=== PATIENT | female | born 1985 | race Caucasian/White ===

== ENCOUNTER 2019-09-09 17:01 | Emergency (ER) | payer OTHER, SELFPAY ==
--- NOTE | ~2019-09-09 | XR_ITS ---
EXAMINATION: XR abdomen/kub 1V INDICATION: Right flank pain TECHNIQUE: Supine views of the abdomen were obtained on 2 radiographs. COMPARISON: None FINDINGS: A right pelvic calcification has the appearance of a phlebolith. No definite urinary tract calculi are identified. The bowel gas pattern is normal. There is a moderate volume of colonic stool. An IUD is noted. IMPRESSION: 1. No radiographic correlate for the patient's symptoms. Reviewed, dictated and finalized at location A.
[2019-09-09 17:26] VITALS: BP 101/86; PULSE 98; RESP 20; TEMP 36.7; O2SAT 99
--- NOTE | 2019-09-09 17:42 | ED.FEMALEGU ---
HPI - Female Genitourinary General Chief complaint: Urogenital-Female Stated complaint: kidney infection Time Seen by Provider: 09/09/19 17:42 Source: patient and family History of Present Illness HPI Narrative: Patient presents with right flank pain. Patient denies any abdominal pain denies any pelvic pain denies any vaginal discharge denies any concern for STDs. Patient states her symptoms started today. Patient denies any gross hematuria she denies any history of kidney stones. Patient took Tylenol 500 mg approxi-3 hours ago for pain discomfort with minimal relief. Patient denies any nausea denies any fever. MD elicited complaint: dysuria and UTI Related Data Allergies Allergy/AdvReac Type Severity Reaction Status Date / Time bacitracin Allergy Unknown Hives Verified 09/09/19 17:46 neomycin Allergy Unknown Hives Verified 09/09/19 17:46 polymyxin B Allergy Unknown Hives Verified 09/09/19 17:46 Review of Systems Review of Systems: Narrative: CONSTITUTIONAL: Denies fever, chills, or sweats. EYES: Denies visual changes, redness, or discharge. ENT: Denies rhinorrhea, congestion, sore throat, or otalgia. CARDIOVASCULAR: Denies chest pain, palpitations, or edema. RESPIRATORY: Denies cough or dyspnea. GASTROINTESTINAL: Denies abdominal pain, nausea, vomiting, or diarrhea. Reports right flank pain GENITOURINARY: Denies dysuria or hematuria. SKIN: Denies rash or itching. MUSCULOSKELETAL: Denies back pain, joint pain, or myalgia. NEUROLOGIC: Denies headache, numbness, or weakness. PSYCHIATRIC: Denies anxiety or depression. PMFSH Comments At time of signature, agree with nursing past medical, surgical, social and family history. There is no relevant family history pertinent to the presenting complaint Exam Narrative: Exam Narrative: GENERAL: Well-appearing, well-nourished, and in no acute distress. HEAD: Normocephalic, atraumatic. EYES: PERRLA and EOMI. ENT: Nares clear, no rhinorrhea or epistaxis. Mucous membranes moist. NECK: Supple. CHEST: Clear to auscultation. No respiratory distress. HEART: Regular rate and rhythm. No murmur heard. Normal peripheral pulses. ABDOMEN: Soft, nontender, nondistended, normal active bowel sounds. Right flank pain EXTREMITIES: Normal range of motion. No edema. SKIN: Warm, dry, no rash. NEURO: No focal deficits. Alert and oriented x3. Fabi Coma Scale Eye Opening: Spontaneous 4 Fabi Coma Scale Motor: Obeys Commands 6 Logan Coma Scale Verbal: Oriented 5 Fabi Coma Scale Total 15 Course Vital Signs Vital signs: Vital Signs Temperature 36.7 C 09/09/19 17:26 Pulse Rate 98 09/09/19 17:26 Respiratory Rate 20 09/09/19 17:26 Blood Pressure 101/86 09/09/19 17:26 Pulse Oximetry 99 09/09/19 17:26 Temperature 36.7 C 09/09/19 17:26 Pulse Rate 98 09/09/19 17:26 Respiratory Rate 20 09/09/19 17:26 Blood Pressure 101/86 09/09/19 17:26 Pulse Oximetry 99 09/09/19 17:26 Much improvement after Toradol. Patient states pain is much improved. Discussed red flags, discussed urinalysis and KUB results. Patient does not wish to go to ER at this time. Patient would like to try outpatient treatment of UTI and follow-up with her primary care provider in 1 to 2 days. Patient states if any worsening or new symptoms occur she will go to the ER at that time. Instructed patient to strain all urine and call primary care office in a.m. for follow-up appointment as soon as possible. For possible further testing and evaluation. MDM - Female Genitourinary Differential Diagnosis Differential diagnosis: Likely urinary tract infection, ovarian cyst, cystitis, dysmenorrhea and other (Kidney stone, dysuria) Lab Data Labs: UCG Bedside Result Negative Reference Range: Negative Urine Glucose Negative Reference Range: Negative Urine Bilirubin Negative Reference Range: Negative Urine Ketone Negative
[2019-09-09] MEDS: KETOROLAC (*BKC) 60 MG/2 ML VIAL IM (17:49)
== END 2019-09-09 18:55 | disposition home or self-care (01) ==
PROVIDERS: Emergency Provider Nurse Practitioner Family
DX: N39.0 Urinary tract infection, site not specified (principal)
CPT/HCPCS: 74018; 81003; 81025; 87086; 96372; 99213; G0463; J1885

== ENCOUNTER 2020-12-27 15:11 | Emergency (ER) | payer OTHER, SELFPAY ==
--- NOTE | ~2020-12-27 | XR_ITS ---
EXAMINATION: XR ankle LT min 3V EXAM DATE: 12/27/2020 15:34 INDICATION: Left ankle twisting injury. TECHNIQUE: Left ankle frontal, lateral and oblique projections obtained and reviewed. There is no pr ior study for comparison. FINDINGS: The left ankle mortise appears intact. There are no acute fractures or dislocations ident ified. There is no subcutaneous gas. The soft tissue is unremarkable. There are no radiopaque for eign bodies. IMPRESSION: No acute osseous findings. Reviewed, dictated and finalized at location B. IMPRESSION: No acute osseous findings.
[2020-12-27 15:23] VITALS: BP 118/73; PULSE 70; RESP 16; TEMP 37.7; O2SAT 99
--- NOTE | 2020-12-27 15:58 | ED.LOWEXIN ---
HPI - Extremity Injury (Lower) General Chief Complaint: Extremity Injury, Lower Stated Complaint: Pain in Left Foot and Ankle Time Seen by Provider: 12/27/20 15:45 Source: patient, RN notes reviewed and old records reviewed Mode of arrival: ambulatory Limitations: no limitations History of Present Illness HPI Narrative: 35-year-old female who presents to [facility] with complaint of pain to her left foot and ankle lateral aspect.. She states that she was getting out of pool and she slipped on steps falling back into the pool hitting her left foot and lateral ankle on the steps.Patient states that her left ankle is sore on the lateral aspect of her ankle and also in area above the ankle bone. Patient is able to ambulate on left foot but with pain. Patient denies any other injuries. MD complaint: ankle injury and foot injury Injury: Left: ankle and foot Type of Injury: other (slipped and hit pool steps) Place: home Severity: moderate Severity scale (1-10): 5 Relieving factors: nothing Exacerbating factors: weight bearing and movement Other symptoms: none Treatments prior to arrival: NSAIDS Related Data Home Medications Medication Instructions Recorded Confirmed No Home Medications 12/27/20 12/27/20 Allergies Allergy/AdvReac Type Severity Reaction Status Date / Time bacitracin Allergy Unknown Hives Verified 12/27/20 15:39 neomycin Allergy Unknown Hives Verified 12/27/20 15:39 polymyxin B Allergy Unknown Hives Verified 12/27/20 15:39 Review of Systems Review of Systems: Narrative: CONSTITUTIONAL: Denies fever, chills, or sweats. EYES: Denies visual changes, redness, or discharge. ENT: Denies rhinorrhea, congestion, sore throat, or otalgia. CARDIOVASCULAR: Denies chest pain, palpitations, or edema. RESPIRATORY: Denies cough or dyspnea. GASTROINTESTINAL: Denies abdominal pain, nausea, vomiting, or diarrhea. GENITOURINARY: Denies dysuria or hematuria. SKIN: Denies rash or itching. MUSCULOSKELETAL: Denies back pain,positive for left lateral foot and ankle pain, or myalgia. NEUROLOGIC: Denies headache, numbness, or weakness. PSYCHIATRIC: Denies anxiety or depression. All systems reviewed & are unremarkable except as noted in HPI and below PMFSH Past Medical History Medical History IUD (intrauterine device) in place Surgical History Surgical History (Updated 12/30/20 @ 21:14 by Joyce Garnett NP) H/O oral surgery Family History Family History (Updated 12/30/20 @ 21:17 by Joyce Garnett NP) Sibling Asthma Father Rheumatoid arthritis Acute myocardial infarction Grandparent Diabetes mellitus Stomach cancer Other Hypertension Social History Social History (Updated 12/30/20 @ 21:17 by Joyce Garnett NP) Smoking status: Never smoker Alcohol intake: never Substance use: never Living arrangements: with family Gender identity (if verbalized by the patient): Female Comments At time of signature, agree with nursing past medical, surgical, social and family history. There is no relevant family history pertinent to the presenting complaint Exam Narrative: Exam Narrative: GENERAL: Well-appearing, well-nourished, and in no acute distress. HEAD: Normocephalic, atraumatic. EYES: PERRLA and EOMI. ENT: Nares clear, no rhinorrhea or epistaxis. Mucous membranes moist. NECK: Supple.no lymphadenopathy CHEST: Clear to auscultation. No respiratory distress.SAO2 99% on room air HEART: Regular rate and rhythm. No murmur heard. Normal peripheral pulses. ABDOMEN: Soft, nontender, nondistended, normal active bowel sounds. EXTREMITIES: Normal range of motion. No edema. tenderness to palpation left lateral ankle with increase pain with hyperflexion of left foot, no bruising or abrasions noted. Strong pulses to left foot with foot warm to touch, no tingling or numbness to left foot SKIN: Warm, dry, no rash. NEURO: No focal deficits. Alert and oriented x3. Course Vital Signs Vital signs: Vital
== END 2020-12-27 16:22 | disposition home or self-care (01) ==
PROVIDERS: Emergency Provider Registered Nurse
DX: S93.402A Sprain of unspecified ligament of left ankle, initial encounter (principal); S96.912A Strain of unspecified muscle and tendon at ankle and foot level, left foot, initial encounter; W01.0XXA Fall on same level from slipping, tripping and stumbling without subsequent striking against object, initial encounter; Y93.11 Activity, swimming
CPT/HCPCS: 73610; 99213; G0463

== ENCOUNTER 2021-11-25 13:16 | Emergency (ER) | payer OTHER, SELFPAY ==
[2021-11-25 13:36] VITALS: BP 113/78; PULSE 78; RESP 20; TEMP 36.9; O2SAT 100
--- NOTE | 2021-11-25 13:57 | ED.URI ---
HPI - URI/Sore Throat General Chief Complaint: Upper Respiratory Infection Stated Complaint: cough sore throat Time Seen by Provider: 11/25/21 13:57 Source: patient and RN notes reviewed Mode of arrival: ambulatory Limitations: no limitations History of Present Illness HPI Narrative: 36-year-old female presents with concern for nasal congestion, rhinorrhea, ear pressure and pain, sore throat that started on Saturday. Reports she took a negative COVID test on Saturday. She reports she has been taking a multisymptom cold medicine with little relief. She reports she began having eye itching and redness approximately 3 days ago. She denies eye pain. MD elicited complaint: cough and sore throat Related Data Allergies Allergy/AdvReac Type Severity Reaction Status Date / Time bacitracin Allergy Unknown Hives Verified 11/25/21 13:53 neomycin Allergy Unknown Hives Verified 11/25/21 13:53 polymyxin B Allergy Unknown Hives Verified 11/25/21 13:53 Review of Systems Review of Systems: CONSTITUTIONAL: Reports malaise. Denies chills, sweats, or fever. EYES: Denies visual changes. Reports bilateral redness, itchiness, or discharge. ENT: Reports rhinorrhea, congestion, otalgia and sore throat. CARDIOVASCULAR: Denies chest pain, palpitations, or edema. RESPIRATORY: Reports no occasional cough. Denies dyspnea. GASTROINTESTINAL: Denies abdominal pain, nausea, vomiting, diarrhea SKIN: Denies rash or itching. MUSCULOSKELETAL: Denies myalgia. NEUROLOGIC: Denies headache. All systems reviewed & are unremarkable except as noted in HPI and below PMFSH Past Medical History Medical History IUD (intrauterine device) in place Surgical History Surgical History (Updated 12/30/20 @ 21:14 by Joyce Garnett NP) H/O oral surgery Family History Family History (Updated 12/30/20 @ 21:17 by Joyce Garnett NP) Sibling Asthma Father Rheumatoid arthritis Acute myocardial infarction Grandparent Diabetes mellitus Stomach cancer Other Hypertension Social History Social History (Updated 12/30/20 @ 21:17 by Joyce Garnett NP) Smoking status: Never smoker Alcohol intake: never Substance use: never Gender identity (if verbalized by the patient): Female Comments At time of signature, agree with nursing past medical, surgical, social and family history. There is no relevant family history pertinent to the presenting complaint Exam Narrative: GENERAL: Well-appearing, well-nourished, and in no acute distress. HEAD: Normocephalic EYES: PERRLA, conjunctivae clear. Subconjunctival hematoma noted bilaterally with mild scleral edema, no conjunctival erythema, bilateral watery discharge noted ENT: Nares clear, turbinates edematous and erythematous, clear discharge. Mucous membranes moist. TM erythematous and slightly bulging bilaterally; no tragal tenderness. Oropharynx erythematous without lesions. Tonsils mildly enlarged and without exudate, no drooling, no hoarseness, no trismus, uvula midline. NECK: Supple. No lymphadenopathy CHEST: Clear to auscultation, breath sounds equal. No wheezing, rhonchi, rales, or stridor. No respiratory distress, speaks in full sentences. HEART: Regular rate and rhythm. No murmur heard. SKIN: Warm, dry, no rash. NEURO: Alert and oriented x3. PSYCH: Normal mood and affect Course Course Emergency Course: Patient is aware of diagnosis, understands and agrees to treatment plan. Anticipatory guidance given. Patient agrees to follow-up as directed and is aware of reasons to seek care at the emergency department. Portions of this record may have been created with voice recognition software Level of Care: Express Care Visit Vital Signs Vital signs: Vital Signs Temperature 98.4 F 11/25/21 13:36 Pulse Rate 78 11/25/21 13:36 Respiratory Rate 20 11/25/21 13:36 Blood Pressure 113/78 11/25/21 13:36 Pulse Oximetry 100 11/25/21 13:36 Oxygen Delivery Room Air 11/25/21 13:36 [place]
== END 2021-11-25 14:13 | disposition home or self-care (01) ==
PROVIDERS: Emergency Provider Nurse Practitioner
DX: H66.003 Acute suppurative otitis media without spontaneous rupture of ear drum, bilateral (principal)
CPT/HCPCS: 87081; 87880; 99213; G0463

== ENCOUNTER 2024-06-30 16:10 | Emergency (ER) | payer BC, SELFPAY ==
[2024-06-30 16:18] VITALS: BP 101/71; PULSE 88; RESP 20; TEMP 36.8; O2SAT 99
--- NOTE | 2024-06-30 16:38 | ED_ITS ---
HPI - URI/Sore Throat General Chief Complaint: Upper Respiratory Infection Stated Complaint: cough/throat/eye and ear Time Seen by Provider: 06/30/24 16:38 Source: patient, RN notes reviewed and old records reviewed Mode of arrival: ambulatory Limitations: no limitations History of Present Illness HPI Narrative: 39 year old female who resents to express care with complaints or 1 week duration of sore throat, cough,left ear pain,and some redness of her eyes for 4 days with itching and crusting in the mornings. Patient reports that she has been taking OTC cold and flu medications for her symptoms. Patient reports that she has not been running a fever and has no body aches, or any dyspena. MD elicited complaint: cough, sore throat and other (ear pain and some redness of eyes with crusting drainage) Onset (ago): week(s) (1cough sore throat and ear pain, eye redness and crusting 4 days) Consistency: constant Pain scale (0-10): 4 Description of mucous: clear Able to tolerate fluids by mouth: Yes Treatments prior to arrival: other (cold and flu medication) Related Data Home Medications ?Medication ?Instructions ?Recorded ?Confirmed ?Last Taken ?Type No Home Medications 06/30/24 Unknown History Allergies Allergy/AdvReac Type Severity Reaction Status Date / Time bacitracin Allergy Unknown Hives Verified 06/30/24 16:24 neomycin Allergy Unknown Hives Verified 06/30/24 16:24 polymyxin B Allergy Unknown Hives Verified 06/30/24 16:24 Review of Systems Review of Systems: CONSTITUTIONAL: Reports malaise, no chills, sweats, or fever. EYES: Denies visual changes, reports bilateral redness, or discharge, states eyes itch and has had crusting of eyes in the morning ENT: Reports rhinorrhea, congestion, no sinus pain, left otalgia and positive for sore throat. CARDIOVASCULAR: Denies chest pain, palpitations, or edema. RESPIRATORY: Reports cough.? Denies dyspnea. GASTROINTESTINAL: Denies abdominal pain, nausea, vomiting, diarrhea SKIN: Denies rash or itching. MUSCULOSKELETAL: Denies myalgia. NEUROLOGIC: Denies headache. All systems reviewed & are unremarkable except as noted in HPI and below PMFSH Past Medical History Medical History IUD (intrauterine device) in place Surgical History Surgical History H/O oral surgery Family History Family History Sibling Asthma Father Rheumatoid arthritis Acute myocardial infarction Grandparent Diabetes mellitus Stomach cancer Other Hypertension Social History Social History Smoking status: Never smoker Alcohol intake: never Substance use: never Living arrangements: with family Gender identity (if verbalized by the patient): Female Comments At time of signature, agree with nursing past medical, surgical, social and family history. There is no relevant family history pertinent to the presenting complaint Exam Narrative: GENERAL: Well-appearing, well-nourished, and in no acute distress. HEAD: Normocephalic EYES: PERRLA, sclera and conjunctiva injected, reports crusting in the morning of yellow green mucous, no present mucoid drainage noted, states eyes are itchy ENT: Nares clear, turbinates edematous and erythematous, clear discharge. Mucous membranes moist, Left TM red, Right TM pearly mckay with dull light reflex; no tragal tenderness. Oropharynx erythematous without lesions. Tonsils not enlarged and without exudate, no drooling, no hoarseness, no trismus, uvula midline, post nasal drainage. NECK: Supple. No lymphadenopathy CHEST: Clear to auscultation, breath sounds equal. No wheezing, rhonchi, rales, or stridor. No respiratory distress, speaks in full sentences.cough no dyspnea SAO2 99% on room air HEART: Regular rate and rhythm. No murmur heard. SKIN: Warm, dry, no rash. NEURO: Alert and oriented x3. PSYCH: Normal mood and affect Course Course Emergency Course: Patient is aware of diagnosis, understands and agrees to treatment plan.? Anticipatory guidance given.? Patient agrees to follow-up as directed and is aware of reasons to seek care at the emergency department. Portions of this record may have been created with voice recognition software Level of Care: Express Care Visit Vital Signs Vital signs: Vital Signs Temperature 36.8 C 06/30/24 16:18 Pulse Rate 88 06/30/24 16:18 Respiratory Rate 20 06/30/24 16:18 Blood Pressure 101/71 06/30/24 16:18 Pulse Oximetry 99 06/30/24 16:18 Oxygen Delivery Room Air 06/30/24 16:18 Temperature 36.8 C 06/30/24 16:18 Pulse Rate 88 06/30/24 16:18 Respiratory Rate 20 06/30/24 16:18 Blood Pressure 101/71 06/30/24 16:18 Pulse Oximetry 99 06/30/24 16:18 Oxygen Delivery Room Air 06/30/24 16:18 Reviewed MDM - URI/Sore Throat MDM Narrative Medical decision making narrative: Differential diagnosis considered: Holt virus, strep pharyngitis, allergic rhinitis, upper respiratory tract infection, sinusitis, rhinosinusitis, nasopharyngitis. viral pharyngitis, otitis media, otitis externa, pneumonia, bronchitis, viral cough syndrome, viral syndrome, and influenza.? Exam findings show no acute concerns or changes; patient is non-toxic appearing and is in no distress.? Patient is appropriate for outpatient treatment and follow-up. Differential Diagnosis Differential diagnosis: Likely upper respiratory infection, otitis media, viral infection, pharyngitis and other (conjunctivitis) Medical Records Attestation: I reviewed the patient's medical records. Lab Data Attestation: I reviewed the patient's lab results. Lab results narrative: strep screen negative, strep culture sent Labs: Lab Results 06/30/24 Range/Units 16:32 POC Grp A Strep Screen Negative (Negative) Critical Care Time Critical Care Time Critical Care Time: No Discharge Plan Discharge Clinical Impression: Left acute otitis media Conjunctivitis Qualifiers: Conjunctivitis type: acute Acute conjunctivitis type: unspecified Laterality: bilateral Qualified Code(s): H10.33 - Unspecified acute conjunctivitis, bilateral Patient Disposition: Home, Self-Care Condition: Stable Instructions: Antibiotic Form, Ear Infection (GEN), Conjunctivitis (ED) Additional Instructions: Increase fluids especially juices and water [id number] cough and cold medicine of your choice for your symptoms Zyrtec Claritin or Flavia daily heat to the face 20-30 minutes 4-6 times a day for pain Salt water gargles, throat lozenges or throat sprays as desired Antibiotic as directed--finished the medication Cold compresses to the eyes for comfort May need warm compresses to remove debris in the morning When cleaning the eyes used a washcloth in one direction then change washcloths or use a cotton ball in one direction and then his cotton balls Eyedrops as directed--may be more soothing if left in the refrigerator Do not share medicine--do not touch the eye with the medicine Tylenol or ibuprofen for pain Avoid screen time--television, computer, tablet or phone. Also no reading or driving Follow-up with PCP or supervisor [employer] as directed If your symptoms persist, change or worsen significantly before you can contact your personal physician then please, without delay, go to the emergency department for further evaluation. Follow-up with PCP in 7-10 days or sooner if needed strep test negative Patient Language: Uzbek Prescriptions: New amoxicillin 875 mg tablet 875 mg PO Q12H Qty: 20 0RF ofloxacin 0.3 % drops See Rx Instructions .ROUTE .COMPLEX Qty: 10 0RF Rx Instructions: put 1-2 drps into affected eye(s) every 2-4 h x 2 days, then 1-2 drps 4 times/day days 3-7 No Action No Home Medications Follow-up/Referrals: PHYSICIAN NOT ON STAFF,NONSTAFF [Primary Care Provider] - Time of Disposition: 16:55 Quality Fabi Coma Scale Eyes: Open Verbal: Oriented and Alert Motor: Follows Commands Fabi Coma Total Score: 15
[2024-06-30 16:52] LABS: EDSTREPNEGPOS1 Negative (Negative)
== END 2024-06-30 17:00 | disposition home or self-care (01) ==
PROVIDERS: Emergency Provider Registered Nurse
DX: H66.92 Otitis media, unspecified, left ear (principal); H10.33 Unspecified acute conjunctivitis, bilateral; Z97.5 Presence of (intrauterine) contraceptive device
CPT/HCPCS: 87081; 87880; 99213; G0463